=== PATIENT | male | born 1980 ===

== ENCOUNTER 2017-04-10 07:03 | Emergency (ER) | payer MEDICAID, OTHER ==
--- NOTE | 2017-04-10 07:34 | ED PDOC ---
Arrival/HPI - General Chief Complaint: Substance Abuse Time Seen by Provider: 04/10/17 07:17 Historian: Patient - History of Present Illness Narrative History of Present Illness (Text): 04/10/17 07:30 36 year old male, with past history of drug abuse, presents to the Emergency department accompanied by [place] [employer] for medical clearance today. Patient, who is currently in police custody, informs taking heroin and crack cocaine for past three days. Patient's last intake of crack cocaine was 3 am this morning and was found by Raheem MIDDLETON at [facility]. Patient informs attempt to strangle himself and currently complains of soreness and discomfort to the front of his neck secondary to the action. Patient currently denies any other complaints. Patient denies any fever, chills, nausea, vomiting , diarrhea, abdominal pain, chest pain, shortness of breath, suicidal ideation or any other complaints. Time/Duration: 4-6 hours Symptom Onset: Gradual Symptom Course: Unchanged Context: Other ([facility]) Past Medical History - Provider Review Nursing Documentation Reviewed: Yes - Psychiatric Hx Substance Use: Yes Family/Social History - Physician Review Nursing Documentation Reviewed: Yes Family/Social History: Unknown Family HX Smoking Status: Heavy Smoker > 10 Cigarettes Daily Hx Alcohol Use: Yes Frequency of alcohol use: Daily Hx Substance Use: Yes Substance used: heroin x3 last 0300 Allergies/Home Meds Allergies/Adverse Reactions: Allergies No Known Allergies Allergy (Verified 04/10/17 07:14) Home Medications: Home Meds Medication Instructions Recorded Confirmed No Known Home Med 04/10/17 04/10/17 Review of Systems - Physician Review All systems were reviewed & negative as marked: Yes - Review of Systems Constitutional: Normal. absent: Fevers Eyes: Normal ENT: Other (external discomfort to front of neck) Respiratory: Normal. absent: SOB Cardiovascular: Normal. absent: Chest Pain Gastrointestinal: Normal. absent: Abdominal Pain, Diarrhea, Nausea, Vomiting Genitourinary Male: Normal Musculoskeletal: Neck Pain Skin: Normal Neurological: Normal Endocrine: Normal Hemo/Lymphatic: Normal Psychiatric: Normal. absent: Suicidal Ideation Physical Exam Vital Signs Reviewed: Yes Vital Signs Temp Pulse Resp BP Pulse Ox 04/10/17 07:14 98.2 F 99 H 14 108/85 99 Temperature: Afebrile Blood Pressure: Normal Pulse: Regular Respiratory Rate: Normal Appearance: Positive for: Other (mildly lethargic but arousable. No apparent distress.) Pain Distress: None Mental Status: Positive for: Alert and Oriented X 3, Lethargic (mild) - Systems Exam Head: Present: Atraumatic, Normocephalic Pupils: Present: PERRL Extroacular Muscles: Present: EOMI Conjunctiva: Present: Normal Mouth: Present: Moist Mucous Membranes Neck: Present: Normal Range of Motion, Other (Minimal superficial soft tissue tenderness to right side of neck. No crepitus, no changes in voice. ) Respiratory/Chest: Present: Clear to Auscultation, Good Air Exchange, Other (No stridor.). No: Respiratory Distress, Accessory Muscle Use Cardiovascular: Present: Regular Rate and Rhythm, Normal S1, S2. No: Murmurs Abdomen: Present: Normal Bowel Sounds. No: Tenderness, Distention, Peritoneal Signs Back: Present: Normal Inspection Upper Extremity: Present: Normal Inspection. No: Cyanosis, Edema Lower Extremity: Present: Normal Inspection. No: Edema Neurological: Present: GCS=15, CN II-XII Intact, Speech Normal Skin: Present: Warm, Dry, Normal Color. No: Rashes Psychiatric: Present: Alert, Oriented x 3, Lethargic (Mildly lethargic but arousable.) Medical Decision Making ED Course and Treatment: 04/10/17 07:37 Impression: 36 year old male presents to the Emergency department s/p drug abuse. Plan: -- Reassess and disposition Progress Notes: - Scribe Statement The provider has reviewed the documentation as recorded by the Weroibcaroline Nguyen. All medical record entries made by the Scribe were at my direction and personally dictated by me. I have reviewed the chart and agree that the record accurately reflects my personal performance of the history, physical exam, medical decision making, and the department course for this patient. I have also personally directed, reviewed, and agree with the discharge instructions and disposition. Disposition/Present on Arrival - Present on Arrival Any Indicators Present on Arrival: No History of DVT/PE: No History of Uncontrolled Diabetes: No Urinary Catheter: No History of Decub. Ulcer: No History Surgical Site Infection Following: None - Disposition Have Diagnosis and Disposition been Completed?: Yes Diagnosis: Substance abuse, Strangling Disposition: RELEASED IN POLICE CUSTODY Disposition Time: 08:25 Patient Plan: Discharge Condition: STABLE Forms: [employer] (Comoran)
[2017-04-10 10:20] LABS: BASO # 0.03 K/mm3 (0.0-2.0); BASO % 0.2 % (0.0-3.0); EOS % 0.2 % (1.5-5.0); GRAN # 10.07 (1.4-6.5); GRAN % 72.3 % (50.0-68.0); HEMOGLOBIN 13.6 g/dL (14.0-18.0); LYMPH # 2.4 (1.2-3.4); LYMPH % 16.9 % (22.0-35.0); MEAN CELL VOLUME 86.6 fl (80.0-105.0); MEAN CORPUSCULAR HEMOGLOBIN 29.9 pg (25.0-35.0); MEAN CORPUSCULAR HGB CONC 34.5 g/dl (31.0-37.0); MEAN PLATELET VOLUME 11.4 fl (7.0-11.0); MONO # 1.5 (0.1-0.6); MONO % 10.4 % (1.0-6.0); RBC 4.55 10^6/uL (3.5-6.1); RED CELL DISTRIBUTION WIDTH 13.3 % (11.5-14.5); WHITE BLOOD COUNT 13.9 10^3/ul (4.5-11.0)
[2017-04-10 10:33] LABS: ALB/GLOB RATIO 1.5 (1.1-1.8); ALBUMIN 5.1 g/dL (3.0-4.8); ALT/SGPT 77 U/L (7-56); AST/SGOT 106 U/L (17-59); BLOOD UREA NITROGEN 28 mg/dL (7-21); CALCIUM 10.5 mg/dL (8.4-10.5); GFR AFRICAN-AMERICAN > 60; GFR NON-AFRICAN AMERICAN > 60
[2017-04-10 10:34] LABS: ACETAMINOPHEN < 10.0 ug/ml (10.0-20.0); SALICYLATE < 1 mg/dL (2.0-20.0)
[2017-04-10 11:13] LABS: URINE BILIRUBIN SMALL (NEGATIVE); URINE BLOOD TRACE-INTACT (NEGATIVE); URINE GLUCOSE (UA) NEGATIVE (NEGATIVE); URINE LEUKOCYTE ESTERASE NEGATIVE Leu/uL (NEGATIVE); URINE NITRATE NEGATIVE (NEGATIVE); URINE PROTEIN 100 mg/dL (<30 mg/dL); URINE UROBILINOGEN 0.2 E.U./dL (<1 E.U./dL)
[2017-04-10 11:15] LABS: URINE APPEARANCE CLEAR (CLEAR); URINE COLOR YELLOW (YELLOW)
[2017-04-10 11:19] LABS: URINE BACTERIA MANY (NEG); URINE FINE GRANULAR CAST 0 - 2 /hpf (0-2); URINE HYALINE CAST 0 - 2 /hpf; URINE WBC 0 - 2 /hpf (0-6)
--- NOTE | 2017-04-10 11:43 | RAD ---
HISTORY: clearance COMPARISON: No prior. FINDINGS: LUNGS: No active pulmonary disease. PLEURA: No significant pleural effusion identified, no pneumothorax apparent. CARDIOVASCULAR: Normal. OSSEOUS STRUCTURES: No significant abnormalities. VISUALIZED UPPER ABDOMEN: Normal. OTHER FINDINGS: None. IMPRESSION: No active disease.
[2017-04-10 12:07] LABS: BARBITURATES, UR NEGATIVE (NEGATIVE)
[2017-04-10 12:20] LABS: BENZODIAZEPINES, UR NEGATIVE (NEGATIVE); OPIATES, UR NEGATIVE (NEGATIVE); PHENCYCLIDINE, UR NEGATIVE (NEGATIVE)
--- NOTE | 2017-04-10 19:33 | ED PDOC ---
Physical Exam Vital Signs Temp Pulse Resp BP Pulse Ox 04/11/17 05:00 98.5 F 81 16 121/81 94 L 04/11/17 03:00 98.7 F 77 16 102/58 L 97 04/11/17 01:00 98.7 F 89 16 138/70 99 04/10/17 23:00 98.6 F 90 16 132/73 98 04/10/17 21:24 92 H 16 138/87 99 04/10/17 18:20 90 16 126/72 99 04/10/17 17:09 94 H 16 114/69 99 04/10/17 15:31 90 16 112/68 98 04/10/17 12:40 91 H 16 120/61 98 04/10/17 11:22 90 17 107/82 98 04/10/17 09:05 96 H 17 109/80 98 04/10/17 07:14 98.2 F 99 H 14 108/85 99 Medical Decision Making ED Course and Treatment: 04/10/17 19:32 Patient transferred to nc by Dr. Mendez. Patient has history of cocaine abuse and suicidal ideation. Patient was medically cleared earlier. Pending [facility] [place]. Patient currently resting comfortably. 04/11/17 05:47 Patient evaluated by PES karly Carmona. Awaiting placement for voluntary admission. - Lab Interpretations Lab Results: 04/10/17 10:05 04/10/17 10:05 Lab Results 04/10/17 11:40: Urine Opiates Screen Negative, Urine Methadone Screen Negative, Ur Barbiturates Screen Negative, Ur Phencyclidine Scrn Negative, Ur Amphetamines Screen Negative, U Benzodiazepines Scrn Negative, U Oth Cocaine Metabols Positive H, U Cannabinoids Screen Positive H 04/10/17 10:37: Urine Color Yellow, Urine Appearance Clear, Urine pH 6.0, Ur Specific [place] >= 1.030, Urine Protein 100 H, Urine Glucose (UA) Negative, Urine Ketones >=80, Urine Blood Trace-intact H, Urine Nitrate Negative, Urine Bilirubin Small H, Urine Urobilinogen 0.2, Ur Leukocyte Esterase Negative, Urine RBC 1 - 3, Urine WBC 0 - 2, Ur Epithelial Cells None, Urine Bacteria Many , Hyaline Casts 0 - 2, Fine Granular Casts 0 - 2 04/10/17 10:05: Alcohol, Quantitative < 10 04/10/17 10:05: Salicylates < 1 L, Acetaminophen < 10.0 L 04/10/17 10:05: Sodium 144, Potassium 3.7, Chloride 106, Carbon Dioxide 18 L, Anion Gap 24 H, BUN 28 H, Creatinine 1.2, Est GFR ( Amer) > 60, Est GFR ( Non-Af Amer) > 60, Random Glucose 98, Calcium 10.5, Total Bilirubin 1.3, AST 106 H, ALT 77 H, Alkaline Phosphatase 54, Total Protein 8.4 H, Albumin 5.1 H, Globulin 3.4, Albumin/Globulin Ratio 1.5 04/10/17 10:05: WBC 13.9 H, RBC 4.55, Hgb 13.6 L, Hct 39.4 L, MCV 86.6, MCH 29.9 , MCHC 34.5, RDW 13.3, Plt Count 213, MPV 11.4 H, Gran % 72.3 H, Lymph % (Auto) 16.9 L, [place] % (Auto) 10.4 H, Eos % (Auto) 0.2 L, Baso % (Auto) 0.2, Gran # 10.07 H, Lymph # (Auto) 2.4, [place] # (Auto) 1.5 H, Eos # (Auto) 0.0, Baso # (Auto ) 0.03 - RAD Interpretation Radiology Orders: 04/10/17 10:34 CHEST PORTABLE [RAD] Stat - Scribe Statement The provider has reviewed the documentation as recorded by the Adilene Savage Provider Scribe Attestation: All medical record entries made by the Weroibcaroline were at my direction and personally dictated by me. I have reviewed the chart and agree that the record accurately reflects my personal performance of the history, physical exam, medical decision making, and the department course for this patient. I have also personally directed, reviewed, and agree with the discharge instructions and disposition. Disposition/Present on Arrival - Present on Arrival Any Indicators Present on Arrival: No History of DVT/PE: No History of Uncontrolled Diabetes: No Urinary Catheter: No History of Decub. Ulcer: No History Surgical Site Infection Following: None - Disposition Have Diagnosis and Disposition been Completed?: No Diagnosis: Substance abuse, Strangling, Major depression, Suicidal intent Disposition Time: 07:00 Patient Problems: Current Active Problems Problem Status Onset Strangling Acute Substance abuse Acute Condition: STABLE Referrals: PCP,NO [Primary Care Provider] - Follow up with primary Forms: [employer] (British)
--- NOTE | 2017-04-11 07:20 | ED PDOC ---
Physical Exam Vital Signs Temp Pulse Resp BP Pulse Ox 04/11/17 13:18 97.9 F 86 18 120/68 97 04/11/17 11:12 98 F 71 19 125/80 99 04/11/17 08:04 70 19 136/74 95 04/11/17 05:00 98.5 F 81 16 121/81 94 L 04/11/17 03:00 98.7 F 77 16 102/58 L 97 04/11/17 01:00 98.7 F 89 16 138/70 99 04/10/17 23:00 98.6 F 90 16 132/73 98 04/10/17 21:24 92 H 16 138/87 99 04/10/17 18:20 90 16 126/72 99 04/10/17 17:09 94 H 16 114/69 99 04/10/17 15:31 90 16 112/68 98 04/10/17 12:40 91 H 16 120/61 98 04/10/17 11:22 90 17 107/82 98 04/10/17 09:05 96 H 17 109/80 98 04/10/17 07:14 98.2 F 99 H 14 108/85 99 Medical Decision Making ED Course and Treatment: 04/11/17 07:19 Patient endorsed from previous shift. Denies chest pain or shortness of breath. Afebrile. Currently calm and cooperative. NO neuro deficits. CV stable at this time. Awaiting ACCESS evaluation as per PES. Will continue monitoring of symptoms. 04/11/17 16:31 Patient reassessed. Resting, cooperative. He has eaten a full meal with no nausea or vomiting. Denies neck pain or throat pain. States that when he initially presented to the ED it was "because I used cocaine and I wanted to hurt myself". He has no abdominal pain, no vomiting. Labs reviewed with patient. Awaiting final PES disposition. 04/11/17 18:49 Patient awaiting final dispo. He is comfortable, has no complaints. Repeat chemistry reviewed unremarkable. Case endorsed to Dr. Burks, oncoming ED physician for follow-up exams and disposition. - Lab Interpretations Lab Results: 04/10/17 10:05 04/11/17 16:45 Lab Results 04/11/17 16:45: Sodium 141, Potassium 4.1, Chloride 103, Carbon Dioxide 26, Anion Gap 16, BUN 22 H, Creatinine 1.2, Est GFR ( Amer) > 60, Est GFR ( Non-Af Amer) > 60, Random Glucose 93, Calcium 10.2, Total Bilirubin 0.8, AST 54 , ALT 64 H, Alkaline Phosphatase 48, Total Protein 8.1, Albumin 4.8, Globulin 3.3, Albumin/Globulin Ratio 1.4 04/10/17 11:40: Urine Opiates Screen Negative, Urine Methadone Screen Negative, Ur Barbiturates Screen Negative, Ur Phencyclidine Scrn Negative, Ur Amphetamines Screen Negative, U Benzodiazepines Scrn Negative, U Oth Cocaine Metabols Positive H, U Cannabinoids Screen Positive H 04/10/17 10:37: Urine Color Yellow, Urine Appearance Clear, Urine pH 6.0, Ur Specific [place] >= 1.030, Urine Protein 100 H, Urine Glucose (UA) Negative, Urine Ketones >=80, Urine Blood Trace-intact H, Urine Nitrate Negative, Urine Bilirubin Small H, Urine Urobilinogen 0.2, Ur Leukocyte Esterase Negative, Urine RBC 1 - 3, Urine WBC 0 - 2, Ur Epithelial Cells None, Urine Bacteria Many , Hyaline Casts 0 - 2, Fine Granular Casts 0 - 2 04/10/17 10:05: Alcohol, Quantitative < 10 04/10/17 10:05: Salicylates < 1 L, Acetaminophen < 10.0 L 04/10/17 10:05: Sodium 144, Potassium 3.7, Chloride 106, Carbon Dioxide 18 L, Anion Gap 24 H, BUN 28 H, Creatinine 1.2, Est GFR ( Amer) > 60, Est GFR ( Non-Af Amer) > 60, Random Glucose 98, Calcium 10.5, Total Bilirubin 1.3, AST 106 H, ALT 77 H, Alkaline Phosphatase 54, Total Protein 8.4 H, Albumin 5.1 H, Globulin 3.4, Albumin/Globulin Ratio 1.5 04/10/17 10:05: WBC 13.9 H, RBC 4.55, Hgb 13.6 L, Hct 39.4 L, MCV 86.6, MCH 29.9 , MCHC 34.5, RDW 13.3, Plt Count 213, MPV 11.4 H, Gran % 72.3 H, Lymph % (Auto) 16.9 L, [place] % (Auto) 10.4 H, Eos % (Auto) 0.2 L, Baso % (Auto) 0.2, Gran # 10.07 H, Lymph # (Auto) 2.4, [place] # (Auto) 1.5 H, Eos # (Auto) 0.0, Baso # (Auto ) 0.03 - RAD Interpretation Radiology Orders: 04/10/17 10:34 CHEST PORTABLE [RAD] Stat Disposition/Present on Arrival - Present on Arrival Any Indicators Present on Arrival: No History of DVT/PE: No History of Uncontrolled Diabetes: No Urinary Catheter: No History of Decub. Ulcer: No History Surgical Site Infection Following: None - Disposition Have Diagnosis and Disposition been Completed?: No Diagnosis: Substance abuse, Strangling, Major depression, Suicidal intent Disposition Time: 19:00 Patient Plan: Observation Patient Problems: Current Active Problems Problem Status Onset Major depression Acute Strangling Acute Substance abuse Acute Suicidal intent Acute Condition: STABLE Referrals: PCP,NO [Primary Care Provider] - Follow up with primary Forms: [employer] (Bengali)
--- NOTE | 2017-04-11 09:42 | CARD ---
APPROVED REPORT EKG Measurement Heart [id number] <Conclusion> Sinus tachycardia Moderate voltage criteria for LVH, may be normal variant Mildly prolonged QTc
--- NOTE | 2017-04-11 09:49 | CARD ---
APPROVED REPORT EKG Measurement Heart [id number] <Conclusion> Sinus rhythm with PVC Minimal voltage criteria for LVH, may be normal variant Mildly prolonged QTc No change
[2017-04-11 17:12] LABS: ALB/GLOB RATIO 1.4 (1.1-1.8); ALBUMIN 4.8 g/dL (3.0-4.8); ALT/SGPT 64 U/L (7-56); AST/SGOT 54 U/L (17-59); BLOOD UREA NITROGEN 22 mg/dL (7-21); CALCIUM 10.2 mg/dL (8.4-10.5); GFR AFRICAN-AMERICAN > 60; GFR NON-AFRICAN AMERICAN > 60
--- NOTE | 2017-04-11 19:56 | ED PDOC ---
Physical Exam - Physical Exam Narrative Physical Exam (Text): 04/11/17 19:56 Pt. re endorsed to me from .Resting comfortably.Still awaiting placement. Vital Signs Temp Pulse Resp BP Pulse Ox 04/12/17 05:56 81 17 105/78 96 04/12/17 02:34 70 18 108/62 95 04/11/17 19:30 98.2 F 89 17 129/58 L 99 04/11/17 13:18 97.9 F 86 18 120/68 97 04/11/17 11:12 98 F 71 19 125/80 99 04/11/17 08:04 70 19 136/74 95 04/11/17 05:00 98.5 F 81 16 121/81 94 L 04/11/17 03:00 98.7 F 77 16 102/58 L 97 04/11/17 01:00 98.7 F 89 16 138/70 99 04/10/17 23:00 98.6 F 90 16 132/73 98 04/10/17 21:24 92 H 16 138/87 99 04/10/17 18:20 90 16 126/72 99 04/10/17 17:09 94 H 16 114/69 99 04/10/17 15:31 90 16 112/68 98 04/10/17 12:40 91 H 16 120/61 98 04/10/17 11:22 90 17 107/82 98 04/10/17 09:05 96 H 17 109/80 98 04/10/17 07:14 98.2 F 99 H 14 108/85 99 Medical Decision Making - Lab Interpretations Lab Results: 04/10/17 10:05 04/11/17 16:45 Lab Results 04/11/17 16:45: Sodium 141, Potassium 4.1, Chloride 103, Carbon Dioxide 26, Anion Gap 16, BUN 22 H, Creatinine 1.2, Est GFR ( Amer) > 60, Est GFR ( Non-Af Amer) > 60, Random Glucose 93, Calcium 10.2, Total Bilirubin 0.8, AST 54 , ALT 64 H, Alkaline Phosphatase 48, Total Protein 8.1, Albumin 4.8, Globulin 3.3, Albumin/Globulin Ratio 1.4 04/10/17 11:40: Urine Opiates Screen Negative, Urine Methadone Screen Negative, Ur Barbiturates Screen Negative, Ur Phencyclidine Scrn Negative, Ur Amphetamines Screen Negative, U Benzodiazepines Scrn Negative, U Oth Cocaine Metabols Positive H, U Cannabinoids Screen Positive H 04/10/17 10:37: Urine Color Yellow, Urine Appearance Clear, Urine pH 6.0, Ur Specific [place] >= 1.030, Urine Protein 100 H, Urine Glucose (UA) Negative, Urine Ketones >=80, Urine Blood Trace-intact H, Urine Nitrate Negative, Urine Bilirubin Small H, Urine Urobilinogen 0.2, Ur Leukocyte Esterase Negative, Urine RBC 1 - 3, Urine WBC 0 - 2, Ur Epithelial Cells None, Urine Bacteria Many , Hyaline Casts 0 - 2, Fine Granular Casts 0 - 2 04/10/17 10:05: Alcohol, Quantitative < 10 04/10/17 10:05: Salicylates < 1 L, Acetaminophen < 10.0 L 04/10/17 10:05: Sodium 144, Potassium 3.7, Chloride 106, Carbon Dioxide 18 L, Anion Gap 24 H, BUN 28 H, Creatinine 1.2, Est GFR ( Amer) > 60, Est GFR ( Non-Af Amer) > 60, Random Glucose 98, Calcium 10.5, Total Bilirubin 1.3, AST 106 H, ALT 77 H, Alkaline Phosphatase 54, Total Protein 8.4 H, Albumin 5.1 H, Globulin 3.4, Albumin/Globulin Ratio 1.5 04/10/17 10:05: WBC 13.9 H, RBC 4.55, Hgb 13.6 L, Hct 39.4 L, MCV 86.6, MCH 29.9 , MCHC 34.5, RDW 13.3, Plt Count 213, MPV 11.4 H, Gran % 72.3 H, Lymph % (Auto) 16.9 L, [place] % (Auto) 10.4 H, Eos % (Auto) 0.2 L, Baso % (Auto) 0.2, Gran # 10.07 H, Lymph # (Auto) 2.4, [place] # (Auto) 1.5 H, Eos # (Auto) 0.0, Baso # (Auto ) 0.03 - RAD Interpretation Radiology Orders: 04/10/17 10:34 CHEST PORTABLE [RAD] Stat - Transfer of Care Patient signed out to Dr:: Mariam Other: Awaiting bed availability/final disposition Disposition/Present on Arrival - Present on Arrival Any Indicators Present on Arrival: No History of DVT/PE: No History of Uncontrolled Diabetes: No Urinary Catheter: No History of Decub. Ulcer: No History Surgical Site Infection Following: None - Disposition Have Diagnosis and Disposition been Completed?: No Diagnosis: Substance abuse, Strangling, Major depression, Suicidal intent Disposition Time: 07:00 Patient Problems: Current Active Problems Problem Status Onset Major depression Acute Strangling Acute Substance abuse Acute Suicidal intent Acute Condition: STABLE Referrals: PCP,NO [Primary Care Provider] - Follow up with primary Forms: [employer] (New Zealander)
[2017-04-12 08:35] VITALS: RESP 18
--- NOTE | 2017-04-12 11:28 | ED PDOC ---
Physical Exam Vital Signs Temp Pulse Resp BP Pulse Ox 04/12/17 12:05 97.8 F 75 18 126/72 98 04/12/17 09:44 97 H 18 124/71 98 04/12/17 08:34 98 F 70 18 103/64 97 04/12/17 05:56 81 17 105/78 96 04/12/17 02:34 70 18 108/62 95 04/11/17 19:30 98.2 F 89 17 129/58 L 99 04/11/17 13:18 97.9 F 86 18 120/68 97 04/11/17 11:12 98 F 71 19 125/80 99 04/11/17 08:04 70 19 136/74 95 04/11/17 05:00 98.5 F 81 16 121/81 94 L 04/11/17 03:00 98.7 F 77 16 102/58 L 97 04/11/17 01:00 98.7 F 89 16 138/70 99 04/10/17 23:00 98.6 F 90 16 132/73 98 04/10/17 21:24 92 H 16 138/87 99 04/10/17 18:20 90 16 126/72 99 04/10/17 17:09 94 H 16 114/69 99 04/10/17 15:31 90 16 112/68 98 04/10/17 12:40 91 H 16 120/61 98 04/10/17 11:22 90 17 107/82 98 04/10/17 09:05 96 H 17 109/80 98 04/10/17 07:14 98.2 F 99 H 14 108/85 99 Medical Decision Making ED Course and Treatment: 04/12/17 11:27 Patient endorsed to me from previous shift. Patient is resting comfortably. Awaiting final disposition from mental health consultants. On exam, he is comfortable, alert, oriented, not tremulous. No abdominal pain or vomiting. Will continue serial exams. 04/12/17 14:41 PES has reevaluated and patient has reportedly accepted Dr. Streeter at [facility]. - Lab Interpretations Lab Results: 04/10/17 10:05 04/11/17 16:45 Lab Results 04/11/17 16:45: Sodium 141, Potassium 4.1, Chloride 103, Carbon Dioxide 26, Anion Gap 16, BUN 22 H, Creatinine 1.2, Est GFR ( Amer) > 60, Est GFR ( Non-Af Amer) > 60, Random Glucose 93, Calcium 10.2, Total Bilirubin 0.8, AST 54 , ALT 64 H, Alkaline Phosphatase 48, Total Protein 8.1, Albumin 4.8, Globulin 3.3, Albumin/Globulin Ratio 1.4 04/10/17 11:40: Urine Opiates Screen Negative, Urine Methadone Screen Negative, Ur Barbiturates Screen Negative, Ur Phencyclidine Scrn Negative, Ur Amphetamines Screen Negative, U Benzodiazepines Scrn Negative, U Oth Cocaine Metabols Positive H, U Cannabinoids Screen Positive H 04/10/17 10:37: Urine Color Yellow, Urine Appearance Clear, Urine pH 6.0, Ur Specific [place] >= 1.030, Urine Protein 100 H, Urine Glucose (UA) Negative, Urine Ketones >=80, Urine Blood Trace-intact H, Urine Nitrate Negative, Urine Bilirubin Small H, Urine Urobilinogen 0.2, Ur Leukocyte Esterase Negative, Urine RBC 1 - 3, Urine WBC 0 - 2, Ur Epithelial Cells None, Urine Bacteria Many , Hyaline Casts 0 - 2, Fine Granular Casts 0 - 2 04/10/17 10:05: Alcohol, Quantitative < 10 04/10/17 10:05: Salicylates < 1 L, Acetaminophen < 10.0 L 04/10/17 10:05: Sodium 144, Potassium 3.7, Chloride 106, Carbon Dioxide 18 L, Anion Gap 24 H, BUN 28 H, Creatinine 1.2, Est GFR ( Amer) > 60, Est GFR ( Non-Af Amer) > 60, Random Glucose 98, Calcium 10.5, Total Bilirubin 1.3, AST 106 H, ALT 77 H, Alkaline Phosphatase 54, Total Protein 8.4 H, Albumin 5.1 H, Globulin 3.4, Albumin/Globulin Ratio 1.5 04/10/17 10:05: WBC 13.9 H, RBC 4.55, Hgb 13.6 L, Hct 39.4 L, MCV 86.6, MCH 29.9 , MCHC 34.5, RDW 13.3, Plt Count 213, MPV 11.4 H, Gran % 72.3 H, Lymph % (Auto) 16.9 L, [place] % (Auto) 10.4 H, Eos % (Auto) 0.2 L, Baso % (Auto) 0.2, Gran # 10.07 H, Lymph # (Auto) 2.4, [place] # (Auto) 1.5 H, Eos # (Auto) 0.0, Baso # (Auto ) 0.03 - RAD Interpretation Radiology Orders: 04/10/17 10:34 CHEST PORTABLE [RAD] Stat - Medication Orders Current Medication Orders: Escitalopram Oxalate (Lexapro) 5 mg PO HS SO Lorazepam (Ativan) 0.5 mg PO HS SO Discontinued Medications Lorazepam (Ativan) 0.5 mg PO HS SO PRN Reason: Protocol Disposition/Present on Arrival - Present on Arrival Any Indicators Present on Arrival: No History of DVT/PE: No History of Uncontrolled Diabetes: No Urinary Catheter: No History of Decub. Ulcer: No History Surgical Site Infection Following: None - Disposition Diagnosis: Substance abuse, Strangling, Major depression, Suicidal intent Patient Problems: Current Active Problems Problem Status Onset Major depression Acute Strangling Acute Substance abuse Acute Suicidal intent Acute Condition: STABLE Referrals: PCP,NO [Primary Care Provider] - Follow up with primary Forms: [employer] (Swiss)
[2017-04-12 16:58] VITALS: BP 123/77; PULSE 86; TEMP 97.8; O2SAT 100
--- NOTE | 2017-04-13 01:13 | CON ---
DATE: HISTORY OF PRESENT ILLNESS: The patient is a 36-year-old male with a history of depression and drug use, who presented to the ER accompanied by [place] [employer] for medical clearance. The [place] [employer] found the patient at the [facility] after the patient tried to kill himself by strangling himself. The patient is not currently in police custody and was initially refused by access apparently because there was confusion that he was under police custody. Regardless, the patient is willing to sign in voluntarily for help. He reports profound depression and continued hopelessness. He confirmed that he did try to kill himself and that this was planned that he had taken the drawstrings out of his pants and had soaked the drawstring in water to make it easy for him to hang himself. The patient fears being discharged. He does not know what he would do if he is not in a safe place. He is requesting help and he is coherent and affect is profoundly constricted and preoccupied. He is not hallucinating and does not appear to be responding to internal stimuli. Generally withdrawn in the ER and has been in fair control of thus far responsive to consistence and relevant to questioning. Insight and judgment are fair. Motivation is good, but initially it was low and the patient definitely would benefit from inpatient observation and stabilization as well as referrals for mental health and substance abuse treatment. Labs and vital signs were reviewed by providers, specifically it was positive for cocaine and marijuana at the S on 04/10/2017. Vital signs are stable as of 12:00 p.m. today. IMPRESSION: Mood disorder, not otherwise specified. Rule out major depressive disorder, severe. Crack cocaine abuse as well as opioid abuse; however, his drug screen was negative for opiates. Likely, there is a contribution of substance-induced mood disorder. RECOMMENDATIONS: This provider will continue to recommend that the patient be psychiatrically stabilized in an inpatient voluntary unit. The patient is willing to sign in and consistently requested helping this matter. I met with the patient in the morning and he continues to report hopelessness and depression and fear of being discharged because he does not trust his impulse control. We will again refer this case for access for transfer to [facility] for stabilization as [facility] does not have any available psychiatric beds. PAST MEDICAL HISTORY: Text. FAMILY HISTORY: Text. SOCIAL HISTORY: Text. REVIEW OF SYSTEMS: Text. PHYSICAL EXAMINATION GENERAL: Text. VITAL SIGNS: Text. HEENT: Text. NECK: Text. CARDIOPULMONARY: Text. LUNGS: Text. ABDOMEN: Text. EXTREMITIES: Text. LABORATORY DATA: Text. ASSESSMENT: Text. PLAN: Text. Manan Caban MD cc:
== END 2017-04-12 17:02 | disposition short-term general hospital (02) ==
LOC: ED 07:03 → MERGE 07:03 → ED 04-12 17:02
DX: T14.91XA Suicide attempt, initial encounter (principal); X83.8XXA Intentional self-harm by other specified means, initial encounter; F19.10 Other psychoactive substance abuse, uncomplicated; F32.9 Major depressive disorder, single episode, unspecified
CPT/HCPCS: 71045; 80053; 81001; 85025; 90791; 93005; 99285; G0480